=== PATIENT | male | born 1980 | race African-American/Black ===

== ENCOUNTER 2018-04-20 04:55 | Emergency (ER) | payer MEDICARE, OTHER ==
[~2018-04-20] VITALS: Ht 175.3 cm; Wt 74.8 kg
--- NOTE | 2018-04-20 05:13 | NUR ---
ED Nurse Note: Patient presents with increased anxiety secondary to methamphetamine use.
[2018-04-20 05:14] VITALS: BP 117/84
[2018-04-20] MEDS ORDERED: LORazepam 1mg tab ORAL ONE (05:15)
--- NOTE | 2018-04-20 05:25 | Emergency Room Report ---
History of Present Illness General Chief Complaint: Altered Level of Consciousness Source: Patient Present Illness HPI Is a 37-year-old male with history of bipolar and methamphetamine abuse. He presents with chief complaint of substance abuse and seen things. He said that he spoke a lot of methamphetamine tonight. He said he began to see things. He was concerned as when called 911. He said he felt better now. He said that his new year resolution is to stop drugs so he used a lot tonight because he will be using it every again. Denies suicidal thoughts homicidal thought. Denies any nausea vomiting. Denies any other complaint. Allergies: Coded Allergies: No Known Allergies (Unverified , 04/20/18) Patient History Past Medical History: see triage record, old chart reviewed, psych hx Past Surgical History: other Pertinent Family History: none Social History: Reports: smoking, drug use Immunizations: other Reviewed Nursing Documentation: PMH: Agreed; PSxH: Agreed Nursing Documentation-PMH Past Medical History: No History, Except For History Of Psychiatric Problem: Yes - Bipolar; PTSD; Schizoaffective Review of Systems Eye: Denies: eye pain, blurred vision ENT: Denies: ear pain, nose congestion, throat swelling Respiratory: Denies: cough, shortness of breath Cardiovascular: Denies: chest pain, palpitations Gastrointestinal: Denies: abdominal pain, diarrhea, nausea, vomiting Musculoskeletal: Denies: back pain, joint pain Skin: Denies: rash Neurological: Denies: headache, numbness Endocrine: Denies: increased thirst, increased urine Hematologic/Lymphatic: Denies: easy bruising All Other Systems: negative except mentioned in HPI Physical Exam Vital Signs Date Time Temp Pulse Resp B/P (MAP) Pulse Ox O2 Delivery O2 Flow Rate FiO2 04/20/18 04:54 98.4 135 20 117/84 100 Room Air vitals with tachycardia Sp02 EP Interpretation: reviewed, normal General Appearance: well appearing, no apparent distress, alert Head: normocephalic, atraumatic Eyes: bilateral eye PERRL, bilateral eye EOMI ENT: hearing grossly normal, normal pharynx Neck: full range of motion, supple, no meningismus Respiratory: chest non-tender, lungs clear, normal breath sounds Cardiovascular #1: regular rate, rhythm, no murmur Gastrointestinal: normal bowel sounds, non tender, no mass, no organomegaly, no bruit, non-distended Musculoskeletal: back normal, gait/station normal, normal range of motion Psychiatric: mood/affect normal Skin: warm/dry Medical Decision Making Diagnostic Impression: Primary Impression: Drug-induced psychotic disorder Qualified Codes: F19.951 - Other psychoactive substance use, unspecified with psychoactive substance-induced psychotic disorder with hallucinations Additional Impression: Methamphetamine abuse ER Course Recent with drug induced psychosis. He is better now. Heart rate in the 110s. No evidence of suicidal thoughts or homicidal thought. No criteria for 5150. Patient said he used more than usual because it'll be the last time he used. This patient is a chronic risk of self injury due to poor impulse control, limited coping skills, and judgment intermittently impaired by intoxication. I believe that the available clinical evidence to suggest that these characteristics derived primarily from personality disorder and are likely very stable over time. Hospitalization would likely attenuate risk of self-harm only during long-term period, without lasting risk reduction. Serious self-harm , while possible, would likely be inadvertent, and because of impulsivity, and foreseeable. For these reasons, I do not believe hospitalization would provide meaningful reduction in risk of self-harm. Last Vital Signs Date Time Temp Pulse Resp B/P (MAP) Pulse Ox O2 Delivery O2 Flow Rate FiO2 04/20/18 05:14 135 20 Room Air 04/20/18 05:14 98.4 117/84 100 Status: improved Disposition: HOME, SELF-CARE Condition: Stable Referrals: [facility] (PCP) Additional Instructions: Stop using drugs. Follow-up with your doctor at [facility] within a week. Asked for a referral for Addiction Medicine appointment. Return if symptom worsen. Teodoro Andino MD Apr 20, 2018 05:25
--- NOTE | 2018-04-20 05:38 | NUR ---
ED Nurse Note: Patient cleared for discharge by Dr. Andino. Patient is ambulatory with steady gait, no s/s of acute distress and ID band removed. Patient verbalized understanding of discharge instructions.
[2018-04-20 05:51] VITALS: BP 124/84
== END 2018-04-20 05:53 | disposition home or self-care (01) ==
LOC: EDBD 04:55 → EMR 05:19
DX: F19.151 Other psychoactive substance abuse with psychoactive substance-induced psychotic disorder with hallucinations (principal); F15.10 Other stimulant abuse, uncomplicated; F31.9 Bipolar disorder, unspecified; F25.9 Schizoaffective disorder, unspecified
CPT/HCPCS: 99283

== ENCOUNTER 2019-06-15 21:43 | Emergency (ER) | payer MEDICARE, OTHER ==
[~2019-06-15] VITALS: Ht 180.3 cm; Wt 68.0 kg
[2019-06-15 21:45] VITALS: BP 138/83
--- NOTE | 2019-06-15 21:45 | NUR ---
ED Nurse Note: Patient brought in by ambulance d/t hypoglycemia. Per EMS, on scene glucose reading was 58. Patient aao x 4 and ambulatory. Patient has history of bipolar disorder and does not take medications for it, patient also reports using meth earlier tonight. Patient placed in gown and generator mechanic. Patient exhibiting signs of confusion and paranoia. No acute distress noted.
--- NOTE | 2019-06-15 22:23 | NUR ---
ED Nurse Note: Blood sample and urine collected, sent to lab.
[2019-06-15 22:37] LABS: EOSINOPHILS % (AUTO) 0.8 % (0.0-3.0); HEMATOCRIT 49.4 % (42.0-52.0); HEMOGLOBIN 17.1 G/DL (14.2-18.0); LYMPHOCYTES % (AUTO) 36.6 % (20.0-45.0); MEAN CORPUSCULAR VOLUME 93 FL (80-99); MONOCYTES % (AUTO) 5.9 % (1.0-10.0); NEUTROPHILS % (AUTO) 55.8 % (45.0-75.0); PLATELET COUNT 260 K/UL (150-450); RED BLOOD COUNT 5.29 M/UL (4.70-6.10); WHITE BLOOD COUNT 5.7 K/UL (4.8-10.8)
[2019-06-15 22:55] LABS: ANION GAP 11 mmol/L (5-15); BLOOD UREA NITROGEN 7 mg/dL (7-18); CARBON DIOXIDE 28 MMOL/L (21-32); CHLORIDE 97 MMOL/L (98-107); POTASSIUM 2.9 MMOL/L (3.5-5.1); SODIUM 136 MMOL/L (136-145)
[2019-06-15 23:00] LABS: ALANINE AMINOTRANSFERASE 62 U/L (12-78); ALBUMIN 3.7 G/DL (3.4-5.0); ALKALINE PHOSPHATASE 77 U/L (46-116); ASPARTATE AMINO TRANSFERASE 29 U/L (15-37); BILIRUBIN,TOTAL 0.5 MG/DL (0.2-1.0)
[2019-06-15 23:34] VITALS: BP 134/82
--- NOTE | 2019-06-15 23:34 | NUR ---
ER DISCHARGE NOTE: Patient is cleared to be discharged per ERMD, pt is aox4, on room air, with stable vital signs. pt was given dc instructions, pt was able to verbalize understanding, pt id band and iv site removed intact without complications. pt is able to ambulate with steady gait. pt took all belongings. pt stable upon discharge.
--- NOTE | 2019-06-16 00:10 | Emergency Room Report ---
History of Present Illness General Chief Complaint: Abnormal Labs Source: Patient, EMS Present Illness HPI Patient is a 38-year-old male brought in by EMS after increased generalized weakness. He reports having a recent alcohol intake. He states that he had some beer which caused him to feel somewhat weak. Denies any fever. He had not been vomiting. He reports having not taking any medications currently. Denies any vomiting or diarrhea. Per EMS patient had been using methamphetamine. Denies any current auditory visual hallucinations. Allergies: Coded Allergies: No Known Allergies (Unverified , 04/20/18) Patient History Past Medical History: see triage record Reviewed Nursing Documentation: PMH: Agreed; PSxH: Agreed Review of Systems All Other Systems: negative except mentioned in HPI Physical Exam Vital Signs Date Time Temp Pulse Resp B/P (MAP) Pulse Ox O2 Delivery O2 Flow Rate FiO2 06/15/19 21:34 98.6 120 18 143/84 (103) 98 Room Air Sp02 EP Interpretation: reviewed, normal General Appearance: normal inspection, well appearing, no apparent distress, alert, GCS 15, non-toxic Head: atraumatic ENT: normal ENT inspection, hearing grossly normal, normal voice Neck: normal inspection, full range of motion, supple, no bony tend Respiratory: normal inspection, lungs clear, normal breath sounds, no respiratory distress, no retraction, no wheezing Cardiovascular #1: regular rate, rhythm, no edema Gastrointestinal: normal inspection, normal bowel sounds, non tender, soft, no guarding, no hernia Genitourinary: no CVA tenderness Musculoskeletal: normal inspection, back normal, normal range of motion Neurologic: alert, motor strength/tone normal, inserter III-XII nml as tested, oriented x3, responsive, speech normal, normal inspection Psychiatric: normal inspection, judgement/insight normal, mood/affect normal Medical Decision Making Diagnostic Impression: Primary Impression: Hypokalemia ER Course Patient presented for increased generalized weakness. Differential diagnosis include was not limited to electrolyte abnormality, anemia, hypoglycemic episode among others. Because of complexity of patient's case laboratory tests were ordered. Patient was given oral potassium due to hypokalemia. He had been noted to have adequate blood sugar. Patient stated he felt better and wanted to leave. Patient appears to be has capable of self-care. The patient is advised to follow up with primary care doctor in 1-2 days. Patient is advised to return if any worsening condition or if any changes in status that are concerning. This report is dictated with [employer] ([employer] sustainability project manager software which may occasionally lead to discrepancies related to use of this software. Last Vital Signs Date Time Temp Pulse Resp B/P (MAP) Pulse Ox O2 Delivery O2 Flow Rate FiO2 06/15/19 23:34 98.4 108 18 134/82 99 Room Air Status: improved Disposition: HOME, SELF-CARE Condition: Stable Referrals: [facility] (PCP) Patient Instructions: Hypokalemia Clem Benson MD Jun 16, 2019 00:10
== END 2019-06-15 23:34 | disposition home or self-care (01) ==
LOC: EDBD 21:43 → EMR 23:34
DX: E87.6 Hypokalemia (principal)
CPT/HCPCS: 36415; 80053; 85025; 93005; 99284; J7040; J8499